=== PATIENT | female | born 1980 | race Caucasian/White ===

== ENCOUNTER 2016-09-17 19:31 | Emergency (ER) | payer SELFPAY ==
[~2016-09-17 19:31] MED LIST: ALBU8I INH; LORA-392 PO; PRED50 PO; ZITH250T PO
[2016-09-17 19:36] VITALS: BP 125/86; PULSE 98; RESP 20; TEMP 97.9; O2SAT 100
[2016-09-17] MEDS ORDERED: EXCETAB PO (19:49)
[2016-09-17] MEDS ORDERED: BENZ100 PO (21:03)
[2016-09-17] MEDS ORDERED: AZIT250T3 PO (21:03)
[2016-09-17] MEDS ORDERED: ALBUAER3 INH (21:03)
--- NOTE | 2016-09-17 21:03 | PD ---
HPI Chief Complaint: Cold / Flu Symptoms Time Seen by Provider: 20:58 Travel History International Travel<30 days: No Contact w/Intl Traveler<30days: No Traveled to known affect area: No History of Present Illness HPI Patient is a 36-year-old female with chief complaint of cough. She states she has had symptoms for approximately 1.5 weeks. She initially had some nasal symptoms which have resolved however the cough has worsened over the last several days. She feels like she has chest congestion and "rattling" when she coughs but denies any sputum production. Has some chest tightness denies elizabeth chest pain. No pleuritic pain. Occasional wheezing, no history of asthma or tobacco use. She denies any sore throat, fever, chills, nausea or vomiting. She denies secondary to tubal ligation. [facility] Past Medical History Medical History: Denies Significant Hx Diminished Hearing: No Tetanus Vaccination: Unknown Influenza Vaccination: No ?: Not LMP: LAST WEEK Past Surgical History Section: Yes (X 2) Cholecystectomy: Yes Social History Alcohol Use: Yes (OCCASIONALLY; 1 BEER YESTERDAY) Tobacco Use: No Substance Use: No Allergies-Medications (Allergen,Severity, Reaction): Coded Allergies: Codeine (Verified Allergy, Severe, PASSED OUT, 09/17/16) Penicillin (Verified Allergy, Severe, PASSED OUT, 09/17/16) Reported Meds & Prescriptions Reported Meds & Active Scripts Active Tessalon Perles (Benzonatate) 100 Mg Cap 100-200 Mg PO TID PRN Proair Hfa 8.5 GM Inh (Albuterol Sulfate) 90 Mcg/Act Aer 2 Puff INH Q4-6H PRN 108 mcg/actuation Azithromycin 250 Mg Tab 250 Mg PO DIRECTED Take 2 tabs (500 mg) on day 1 then 1 tab daily x 4 days. Reported Excedrin Migraine (Javsrzz-Yglnjynpixsri-Dstnuyun) 250-250-65 Mg Tab 2 Tab PO PRN Review of Systems Except as stated in HPI: all other systems reviewed are Neg Physical Exam Narrative GENERAL: Well-developed and well-nourished adult female in no acute distress. SKIN: Warm and dry. Good turgor without tenting. HEAD: Normocephalic and atraumatic. EYES: PERRL bilaterally, 5mm. EOMI bilaterally. No injection or icterus present. No proptosis. Lids without edema or erythema. ENT: Bilateral ear canals are non-edematous/non-erythematous without otorrhea. Bilateral TMs have intact landmarks and without distortion, perforation, air- fluid level or erythema. Nasal mucosa erythematous and moist without discharge, septum intact and midline. Buccal mucosa pink and moist. Oropharynx free of erythema, tonsillar hypertrophy, masses, swelling, asymmetry and exudates. Uvula midline and airway patent. NECK: Supple, no meningeal signs. Trachea midline, no JVD. No cervical or facial lymphadenopathy. CARDIOVASCULAR: Regular rate and rhythm without murmurs, rubs, clicks or gallops. Radial and posterior tibial pulses 2+ bilaterally. No pedal edema. Negative bilateral Homans sign. RESPIRATORY: Patient has rales in the right posterior mid upper lung field. No rhonchi or wheezing auscultated. No distress or use of accessory muscles. No stridor, tripoding or drooling. Speaks in full sentences. GASTRO: Non-tender, non-distended. Normal bowel sounds all 4 quadrants. No masses or organomegaly present. MUSCULOSKELETAL: No gait disturbances. Patient freely moving all four extremities spontaneously. Extremities without clubbing, cyanosis, or edema. No obvious deformities. NEUROLOGIC: CN II-XII grossly intact. Awake and alert. Motor grossly within normal limits. Normal speech. PSYCHIATRIC: Appropriate mood and affect; insight and judgment normal. Data Data Last Documented VS Vital Signs Date Time Temp Pulse Resp B/P Pulse Ox O2 Delivery O2 Flow Rate FiO2 09/17/16 19:36 97.9 98 20 125/86 100 Orders Chest, Pa & Lat (09/17/16 ) [facility] Medical Decision Making Medical Screen Exam Complete: Yes Emergency Medical Condition: Yes Interpretation(s) Last 24 hours Impressions Chest X-Ray 09/17/16 0000 Signed Impressions: Service Date/Time: Saturday, September 17, 2016 20:53 - CONCLUSION: 1. Superimposition of dilated bowel over the liver. 2. Notable trachea. Mitchell Day MD Differential Diagnosis Pneumonia versus bronchitis versus URI Narrative Course Patient is a 36-year-old female who is afebrile, nontoxic and otherwise healthy presenting with cough for 1.5 weeks after a sinusitis episode. Her sinus symptoms have resolved and there is no evidence of bacterial foci there. No increased work of breathing and oxygen saturation on room air is normal. She has crackles in the right mid upper lung benson, no wheezing or other sounds auscultated. Ordered chest x-ray which shows no evidence of acute cardiopulmonary process. There is dilated bowel superimposed over the liver and prominent trachea. Patient continues to deny any abdominal symptoms such as bowel pain, bloating, distention, constipation, diarrhea, nausea and vomiting. She has been passing stools without problems. Abdomen is supple and without tenderness and has normal bowel sounds. At this time given the worsening respirations we'll treat with azithromycin and prescribed Provera and Tessalon Perles. Follow-up with PCP in one to 2 days.See discharge paperwork for further instructions. The plan was discussed with the patient who acknowledged their understanding and agreement. Reinforced the follow-up with primary care is critically important. Patient instructed on emergent conditions that should prompt return to ED. Diagnosis Primary Impression: Acute bronchitis Qualified Code: J20.9 - Acute bronchitis, unspecified organism Patient Instructions: Acute Bronchitis (ED), General Instructions Additional Instructions: Take medication as prescribed OTC Mucinex, cough suppressants, and decongestants as needed OTC Tylenol or Ibuprofen for fever and discomfort Drink lots of fluid to help clear mucous/drainage and stay hydrated Follow up with PCP in 2 days Return to the ED for any acute worsening of symptoms Med/Other Pt SpecificInfo: Prescription(s) given Scripts Benzonatate (Tessalon Perles)100 Mg [id number] Mg PO TID PRN (COUGH) #20 CAP Prov:South Reynolds MD 09/17/16 Albuterol 8.5 GM Inh (Proair Hfa 8.5 GM Inh)90 Mcg/Act Aer2 Puff INH Q4-6H PRN ( SHORTNESS OF BREATH) #1 INHALER 108 mcg/actuation Prov:South Reynolds MD 09/17/16 Azithromycin 250 Mg [id number] Mg PO DIRECTED #6 TAB Take 2 tabs (500 mg) on day 1 then 1 tab daily x 4 days. Prov:South Reynolds MD 09/17/16 Disposition: 01 DISCHARGE HOME Condition: Stable [employer] Sep 17, 2016 21:02
--- NOTE | 2016-09-17 21:15 | RADHPO ---
EXAM DATE/TIME: 09/17/2016 20:53 [facility] COMPARISON: No previous studies available for comparison. INDICATIONS : Cough and congestion. MEDICAL HISTORY : None. SURGICAL HISTORY : None. ENCOUNTER: Initial ACUITY: 1 day PAIN SCORE: 0/10 LOCATION: Bilateral chest FINDINGS: PA and lateral views of the chest demonstrate the lungs to be symmetrically aerated without evidence of mass, infiltrate or effusion. The cardiomediastinal contours are unremarkable. Osseous structure s are intact. There is superimposition of dilated bowel over the liver/right hemidiaphragm. CONCLUSION: 1. Superimposition of dilated bowel over the liver. 2. Notable trachea. Mitchell Day MD on September 17, 2016 at 21:12 Board Certified Radiologist. This report was verified electronically.
== END 2016-09-17 21:38 | disposition home or self-care (01) ==
LOC: PHEFT 19:31
DX: J20.9 Acute bronchitis, unspecified (principal)
CPT/HCPCS: 71020; 99283